=== PATIENT | female | born 1970 | race Caucasian/White ===

== ENCOUNTER → 2018-01-07 | Outpatient (CLI) | payer OTHER | END | disposition home or self-care (01) | LOC: MAMMO 12:51 | DX: Z12.31 Encounter for screening mammogram for malignant neoplasm of breast (principal) | CPT/HCPCS: 77063; 77067 ==

== ENCOUNTER → 2019-08-21 | Outpatient (CLI) | payer MEDICAID ==
--- NOTE | 2019-08-21 10:12 | RAD ---
DATE: 08/21/2019 EXAM: MAMMO EVAN SCREENING BILATERAL HISTORY: Routine screening. Benign right breast biopsy in 2017. COMPARISON: 09/06/2015, 12/21/2016, 01/07/2018 mammographic exams This study was interpreted with the benefit of Computerized Aided Detection (CAD). Breast Density: SCATTERED The breast parenchyma shows scattered fibroglandular densities. Breast parenchyma level B. FINDINGS: No suspicious calcification, mass, or distortion in the interval. At the left subareolar region, there is a relatively fat density structure which has remained stable compared to prior exams.. This may represent a fibroadenolipoma or other benign process. IMPRESSION: Stable BI-RADS CATEGORY: 1 NEGATIVE RECOMMENDED FOLLOW-UP: 12M 12 MONTH FOLLOW-UP PQRS compliance statement: Patient information was entered into a reminder system with a target due date for the next mammogram. Mammography is a sensitive method for finding small breast cancers, but it does not detect them all and is not a substitute for careful clinical examination. A negative mammogram does not negate a clinically suspicious finding and should not result in delay in biopsying a clinically suspicious abnormality. "Our facility is accredited by the [employer] Mammography Program."
== END | disposition home or self-care (01) ==
LOC: MAMMO 07:57
PROVIDERS: ATTEND Family Medicine
DX: Z12.31 Encounter for screening mammogram for malignant neoplasm of breast (principal)
CPT/HCPCS: 77063; 77067

== ENCOUNTER → 2020-09-28 | Outpatient (CLI) | payer MEDICAID ==
--- NOTE | 2020-09-28 15:31 | KCIC ---
EXAM: LUMBAR SPINE 2-3V 09/28/2020 10:38 AM CLINICAL INDICATION:Acute left-sided lower back pain over 2 weeks without relief COMPARISON:None TECHNIQUE:AP and lateral views of the lumbar spine FINDINGS:There 5 nonrib-bearing lumbar vertebral bodies. No acute fracture. Alignment is normal. Mild disc space narrowing, greatest at T12-L1 and L3-L4. No significant facet arthrosis. Large volume stool noted. IMPRESSION: 1. Mild lumbar degenerative disc disease. 2. Large volume of stool noted. Electronically signed by: Margot Smith MD (09/28/2020 3:29 PM) [id number]
== END ==
LOC: KCIC 10:31
PROVIDERS: ATTEND Family Medicine
DX: M51.36 Other intervertebral disc degeneration, lumbar region (principal); M48.05 Spinal stenosis, thoracolumbar region
CPT/HCPCS: 72100

== ENCOUNTER → 2021-04-12 | Outpatient (CLI) | payer MEDICAID ==
--- NOTE | 2021-04-12 10:54 | KCIC ---
EXAM: 1. Frontal pelvis with bilateral hips. 2. Bilateral knees 3 views. HISTORY: Bilateral hip and knee pain. COMPARISON: None. FINDINGS: No fractures are appreciated in the pelvis or either proximal femur. There are mild degener ative changes at the pubic symphysis. The sacroiliac joints appear normal. The joint spaces of both h ips are maintained. A tiny osteophyte along the posterior aspect of the left femoral head may be an i ncidental finding. The joint spaces and alignment of both knees are maintained. No fractures are identified. There is no joint effusion bilaterally. IMPRESSION: 1. No fracture or significant degenerative change for patient age. Electronically signed by: Robin Dave MD (04/12/2021 10:52 AM) [id number]
== END ==
LOC: KCIC 09:50
PROVIDERS: ATTEND Family Medicine
DX: M17.0 Bilateral primary osteoarthritis of knee (principal); M16.0 Bilateral primary osteoarthritis of hip
CPT/HCPCS: 73521; 73562-50